=== PATIENT | female | born 1985 | race Caucasian/White ===

== ENCOUNTER 2018-08-03 17:56 | Emergency (ER) | payer OTHER ==
[2018-08-03] MEDS ORDERED: EPINEPHRINE 1 MG/ML 1 ML VIAL IM ONE (18:04)
[2018-08-03] MEDS ORDERED: diPHENhydraMINE PO* 50 MG PO ONE (18:05)
[2018-08-03] MEDS ORDERED: predniSONE TAB* 20 MG PO ONE (18:05)
[2018-08-03] MEDS ORDERED: diPHENhydraMINE PO* 25 MG ONE (18:10)
[2018-08-03] MEDS ORDERED: diPHENhydraMINE PO* 50 MG ONE (18:12)
--- NOTE | 2018-08-03 18:12 | UC ---
Allergic Reaction HPI - HPI Summary HPI Summary: Was eating a seafood bowl and had the sudden onset of feeling hot and facial swelling. - History of Current Complaint Stated Complaint: ALLERGIC REACTION Time Seen by Provider: 08/03/18 17:59 Hx Obtained From: Patient ?: No Onset/Duration: Sudden Onset, Lasting Minutes - 30 Severity Initially: Mild Severity Currently: Moderate Character: Swelling Aggravating Factor(s): Nothing Alleviating Factor(s): Nothing Associated Signs And Symptoms: Positive: Diaphoresis, Lightheadedness, Rash - redness in the face and upper chest.. Negative: Chest Pain, Difficulty Breathing, Hoarseness, Throat Tightening - Related Hx Possible Reaction To: Food - seafood - Allergies/Home Medications Allergies/Adverse Reactions: Allergies Allergy/AdvReac Type Severity Reaction Status Date / Time sulfamethoxazole Allergy Unknown Unknown Verified 08/03/18 18:00 [From Bactrim] Reaction Details trimethoprim [From Bactrim] Allergy Unknown Unknown Verified 08/03/18 18:00 Reaction Details Home Medications: Home Medications Albuterol HFA INHALER* [Ventolin HFA Inhaler*] 2 puff INH Q4H PRN 08/03/18 [ History Confirmed 08/03/18] Levothyroxine Sodium [Tirosint] 175 mcg PO DAILY 08/03/18 [History Confirmed ] PMH/Surg Hx/FS Hx/Imm Hx Endocrine History: Hypothyroidism - Family History Known Family History: Positive: Hypertension - Social History Occupation: Employed Part-time Lives: With Family Review of Systems All Other Systems Reviewed And Are Negative: Yes Skin: Positive: Rash - redness of the face/ chest Is Patient Immunocompromised?: No Physical Exam Triage Information Reviewed: Yes Appearance: No Pain Distress, Well-Nourished, Ill-Appearing - anxious Vital Signs Reviewed: Yes Eyes: Positive: Conjunctiva Clear ENT: Positive: Pharynx normal, TMs normal Neck exam: Normal Respiratory: Positive: Lungs clear. Negative: Wheezing Cardiovascular Exam: Normal Musculoskeletal Exam: Normal Neurological Exam: Normal Psychological Exam: Normal Skin: Positive: Rashes - diffuse redness of the face/ neck and chest Re-Evaluation - Re-Evaluation First Eval Re-Evaluation Time: 18:55 Change: Improved Allergic Reaction Course/Dx - Differential Dx/Diagnosis Differential Diagnosis/HQI/PQRI: Airway Obstruction, Anaphylaxis, Erythema Multiforme Provider Diagnosis: Angioedema due to seafood allergy Discharge - Sign-Out/Discharge Documenting (check all that apply): Patient Departure All imaging exams completed and their final reports reviewed: No Studies - Discharge Plan Condition: Stable Disposition: HOME Prescriptions: EPINEPHrine [Epipen] 0.3 mg IJ ONCE #1 auto.injct Patient Education Materials: Food Allergy (ED), Epinephrine (By injection) Additional Instructions: Continue benedryl as needed. Consider referral to an consulting analyst to have allergy testing. Get all the ingredients from the seafood bowl. - Billing Disposition and Condition Condition: STABLE Disposition: Home
[2018-08-03 18:34] VITALS: BP 146/89
== END 2018-08-03 19:10 | disposition home or self-care (01) ==
LOC: UCCORT 17:56
DX: T78.3XXA Angioneurotic edema, initial encounter (principal); T78.1XXA Other adverse food reactions, not elsewhere classified, initial encounter; X58.XXXA Exposure to other specified factors, initial encounter; E03.9 Hypothyroidism, unspecified
CPT/HCPCS: 96372; 99202; A9270-GY; G0463; J7512

== ENCOUNTER 2018-08-11 20:36 | Emergency (ER) | payer OTHER ==
[2018-08-11 20:55] VITALS: BP 138/98
--- NOTE | 2018-08-11 21:24 | UC ---
Skin Complaint HPI - HPI Summary HPI Summary: 32 y/o female presents to the urgent care c/o buck in both of her temporal areas w/ mild swelling and she thinks it is increasing in size s/p anaphylactic reaction after eating sushi about 1 week ago on 08/03/2018 at the [facility]. She was seen at the [facility] care at [place] and was Dx w/ Angioedema allergic reaction and Rx Epi pen. she has an appt w/ Siphoner in a few day for further management. She she is concerned about a parasite since she has been constipated after she ate sushi. She feels like a butterfly sensation in her abdomen at times. She has also demarcated the rash in her temporal areas and has taken picture to show that it has increased in size. She states she took some organic teas to stimulate BM and she had a very hard,but small BM yesterday. She has not been eating or drinking fluids well. Abdominal pain is achy, diffuse, 2/10 and intermittent, sometimes associated w/ gas. She request an stool culture. Pt deneis fever, SOB, cough, recent travel outside the country. However she lives in [place] and is visiting here for 2 more week. Denies ANDREWS, dizziness, facial swelling, sore throat, chest pain, N/V/D, urinary symptoms. LMP: she is w/ her period now. - History of Current Complaint Chief Complaint: UCSkin Time Seen by Provider: 08/11/18 21:23 Stated Complaint: FORIEGN OBJECT IN HEAD? Hx Obtained From: Patient Hx Last Menstrual Period: [id number] Onset/Duration: Gradual Onset, Lasting Weeks - 1 week, Still Present, Worse Since - today Skin Exposure Onset/Duration: Weeks Ago - 1 week ago Timing: Constant Onset Severity: Mild Current Severity: Moderate Pain Intensity: 2 Pain Scale Used: 0-10 Numeric Location: Discrete - B/l temporal area w/ a buck and mild swelling Character: Swelling - mild swelling around temporal artery Aggravating Factor(s): Touch Alleviating Factor(s): Nothing Associated Signs & Symptoms: Positive: Rash - increase buck around temporal arteries w/ mild swelling. Negative: Nausea, Vomiting, Numbness, Tenderness, Red Streaks Related History: Other: - anaphylactic reaction about 1 week ago s/p eating sushi - Allergy/Home Medications Allergies/Adverse Reactions: Allergies Allergy/AdvReac Type Severity Reaction Status Date / Time sulfamethoxazole Allergy Unknown Unknown Verified 08/11/18 20:55 [From Bactrim] Reaction Details trimethoprim [From Bactrim] Allergy Unknown Unknown Verified 08/11/18 20:55 Reaction Details Home Medications: Home Medications Levothyroxine Sodium [Tirosint] 200 mcg PO DAILY 08/11/18 [History Confirmed ] PMH/Surg Hx/FS Hx/Imm Hx Previously Healthy: Yes Endocrine History: Hypothyroidism Respiratory History: Asthma - Surgical History Surgical History: Yes Surgery Procedure, Year, and Place: vein stripping - Family History Known Family History: Positive: Hypertension - Social History Occupation: Employed Full-time Lives: With Family Alcohol Use: Daily Substance Use Type: None Smoking Status (MU): Never Smoked Tobacco Review of Systems All Other Systems Reviewed And Are Negative: Yes Constitutional: Positive: Negative Skin: Positive: Rash - more pronounced temproal arteries w/ mild pain and swelling Eyes: Positive: Negative ENT: Positive: Negative Respiratory: Positive: Negative Cardiovascular: Positive: Negative Gastrointestinal: Positive: Other - constipation Genitourinary: Positive: Negative Motor: Positive: Negative Neurovascular: Positive: Negative Musculoskeletal: Positive: Negative Neurological: Positive: Headache - mild Psychological: Positive: Negative Is Patient Immunocompromised?: No Physical Exam - Summary Physical Exam Summary: Vital Signs Reviewed: Yes General:Patient is a well developed and nourished female who is sitting comfortable in the examining table. Patient is not in any acute respiratory distress. Head:normocephalic and atraumatic, B/L temporal arteries w/ mild tenderness on palpation and Pt has demarcated them w/ a black eye pencil and appear more pronounced. Eyes: Positive: Conjunctiva Clear - PERRLA, EOMI, fundi grossly normal ENT: Positive: Normal ENT inspection, Hearing grossly normal, Pharynx normal, TMs normal Neck: Positive: Supple, Nontender, No Lymphadenopathy Respiratory: Positive: Chest non-tender, Lungs clear, Normal breath sounds, No respiratory distress Cardiovascular: Positive: RRR,S1 and S2 present, No Murmur, Pulses Normal, Brisk Capillary Refill Abdomen Description: Positive: Nontender, Other: - Abd: Flat with no distention. No surface trauma, scars, incisions. hyperactive bowel sounds present in all four quadrants. No tenderness, guarding, rigidity to palpation. No masses palpated, no pulsation in epigastric area. No organomegaly. Negative Minong signs. No periumbilical tenderness. No rebound in the lower quadrants. NT over McBurneys point. Good femoral pulses bilaterally. No hernia noted. No CVAT bilaterally Musculoskeletal: Positive: Strength Intact, ROM Intact, No Edema,FROM in all major joints, no edema, no cyanosis or clubbing. Neuro: Alert and oriented x 3. No acute neurological deficits. Speech is normal. Psychological: WNL Skin: Dry and warm Triage Information Reviewed: Yes Vital Signs: Initial Vital Signs Temp 98.6 F 08/11/18 20:48 Pulse 94 08/11/18 20:48 Resp 16 08/11/18 20:48 BP 138/98 08/11/18 20:48 Pulse Ox 97 08/11/18 20:48 Course/Dx - Course Course Of Treatment: 32 y/o female presents to the urgent care c/o buck in both of her temporal areas w/ mild swelling and she thinks it is increasing in size s/p anaphylactic reaction after eating sushi about 1 week ago on 08/03/2018 at the [facility]. She was seen at the [facility] care at [place] and was Dx w/ Angioedema allergic reaction and Rx Epi pen. she has an appt w/ Siphoner in a few day for further management. She she is concerned about a parasite since she has been constipated after she ate sushi. She feels like a butterfly sensation in her abdomen at times. She has also demarcated the rash in her temporal areas and has taken picture to show that it has increased in size. She states she took some organic teas to stimulate BM and she had a very hard,but small BM yesterday. She has not been eating or drinking fluids well. Abdominal pain is achy, diffuse, 2/10 and intermittent, sometimes associated w/ gas. She request an stool culture. Pt deneis fever, SOB, cough, recent travel outside the country. However she lives in [place] and is visiting here for 2 more week. Denies ANDREWS, dizziness, facial swelling, sore throat, chest pain, N/V/D, urinary symptoms. LMP: she is w/ her period now. Hx obtained. Pt is hemodynamically stable, Vital : WNL. PE:WNL, the rash in the temporal it is her temporal arteries w/ mild swelling which has demarcated w/ a black facial pen which makes them more pronounced. However Pt is young and doesn't c/o of joint pain to thinks it is temporal arterities. Pt is anxious and request testing. Abdomen is WNL. Abdominal X-ray ordered to r/o constipation, Impression: No obstruction or significant retained stool observed. Pt advised final radiology report will be done tomorrow and she will be notified of any abnormality. CBC, CMP, ESR and CRP ordered and sent to lab. Pt will be notified of any abnormal result for further management w/ her PCP in [place]. Pt advised if she would have a parasite she will probably be w/ diarrhea instead of constipation. However Pt insisted on stool culture. pt advised to Take Miralax PO as directed below to regulate BM, increase fluid intake, increase fiber in diet and collect stool. Order slip given for OVa/parasites and stool culture. Pt counseled probably these weeks symptoms are a consequence of her allergic reaction. Pt's BP is elevated today advised to decrease salt in diet, monitor BP and f/u with PCP for further management. d/C instructions explained. Pt understood and agreed w/ plan of care and left clinic hemodynamically stable. - Differential Diagnoses - Skin Complaint Differential Diagnoses: Abscess, Cellulitis, Contact Dermatitis, Local Allergic Reaction, Urticaria, Other - temporal arteritis, constipation. - Diagnoses Provider Diagnosis: Constipation, Rash and nonspecific skin eruption, Temporal pain, Elevated BP without diagnosis of hypertension Discharge - Sign-Out/Discharge Documenting (check all that apply): Patient Departure - d/c home All imaging exams completed and their final reports reviewed: No - Discharge Plan Condition: Stable Disposition: HOME Prescriptions: Polyethylene Glycol 3350* [Miralax*] 17 gm PO DAILY #1 bottle Patient Education Materials: Constipation (ED), High Fiber Diet (ED) Referrals: [facility] [place] PHYSICIAN REFERRAL [Outside] - 3 Days Additional Instructions: 1- Please take Miralax PO as directed to alleviate symptoms and regulate your BM , Increase hydration and limit dietary ingestion of known gas-producing foods such as cabbage, onions, broccoli, brussel sprouts, wheat, and potatoes can help reduce symptoms. Also avoid drinking carbonated beverages, and gulping food or liquids. Eat a lot of fiber in your diet 2- Blood work sent to lab to r/o any abnormality since you are concern about your temporal area swelling. You will be notifeid of any abnormality 3- Please collect stool sample and bring it back w/ order slip for stool culture and Ova and parasite 4 - If symptoms worsen and you develop severe abdominal pain, N/V. please go immediately to the ER or your PCP for further evaluation and treatment. 5- Final radiology report swill be done tomorrow, you will be notified of any abnormality for further management 6-Your BP is elevated today. please decrease salt in your diet, monitor BP and if it continues to be elevated please f/u with your PCP for further management. - Billing Disposition and Condition Condition: STABLE Disposition: Home - Attestation Statements Provider Attestation: Per institutional requirements, I have reviewed the chart, however, I was not consulted specifically or made aware of this patient by the midlevel provider. I did not personally evaluate, interact with , or disposition this patient.
[2018-08-12 11:02] LABS: ABS Eosinophils 0.1 10^3/ul (0-0.6); ABS Lymphocytes 1.6 10^3/ul (1.0-4.8); ABS Monocytes 0.5 10^3/ul (0-0.8); ABS Neutrophils 2.1 10^3/ul (1.5-7.7); Hematocrit 46 % (35-47); Hemoglobin 15.8 g/dL (12.0-16.0); Lymphocyte % 35.9 %; Mean Corpuscular HGB Conc 34 g/dL (31-36); Mean Corpuscular Hemoglobin 33 pg (27-31); Mean Corpuscular Volume 96 fL (80-97); Mean Platelet Volume 9.1 fL (7.4-10.4); Nucleated Red Blood Cells % 0.1; Platelet Count 264 10^3/uL (150-450); Red Blood Count 4.77 10^6 /uL (3.70-4.87); Red Cell Distribution Width 13 % (10-15); White Blood Count 4.4 10^3/uL (3.5-10.8)
[2018-08-12 11:07] LABS: Albumin 4.4 g/dL (3.2-5.2); Calcium 9.3 mg/dL (8.6-10.3); Total Bilirubin 0.5 mg/dL (0.2-1.0)
[2018-08-12 11:13] LABS: Albumin/Globulin Ratio 1.5 (1-3); BUN/Creatinine Ratio 5.1 (8-20); C Reactive Protein 2.53 mg/L (<8.01); EGFR African American 101.4 (>60); EGFR Non-African American 83.8 (>60); Total Protein 7.4 g/dL (6.4-8.9)
--- NOTE | 2018-08-12 12:41 | UC ---
- Progress Note Progress Note: xray report abd: IMPRESSION: NO EVIDENCE FOR OBSTRUCTION. Course/Dx - Diagnoses Provider Diagnoses: Constipation, Rash and nonspecific skin eruption, Temporal pain, Elevated BP without diagnosis of hypertension Discharge - Sign-Out/Discharge Documenting (check all that apply): Patient Departure All imaging exams completed and their final reports reviewed: Yes - Discharge Plan Condition: Stable Disposition: HOME Prescriptions: Polyethylene Glycol 3350* [Miralax*] 17 gm PO DAILY #1 bottle Patient Education Materials: Constipation (ED), High Fiber Diet (ED) Referrals: [facility] [place] [facility] REFERRAL [Outside] - 3 Days Additional Instructions: 1- Please take Miralax PO as directed to alleviate symptoms and regulate your BM , Increase hydration and limit dietary ingestion of known gas-producing foods such as cabbage, onions, broccoli, brussel sprouts, wheat, and potatoes can help reduce symptoms. Also avoid drinking carbonated beverages, and gulping food or liquids. Eat a lot of fiber in your diet 2- Blood work sent to lab to r/o any abnormality since you are concern about your temporal area swelling. You will be notifeid of any abnormality 3- Please collect stool sample and bring it back w/ order slip for stool culture and Ova and parasite 4 - If symptoms worsen and you develop severe abdominal pain, N/V. please go immediately to the ER or your PCP for further evaluation and treatment. 5- Final radiology report swill be done tomorrow, you will be notified of any abnormality for further management 6-Your BP is elevated today. please decrease salt in your diet, monitor BP and if it continues to be elevated please f/u with your PCP for further management. - Billing Disposition and Condition Condition: STABLE Disposition: Home
[2018-08-12 13:14] LABS: Erythrocyte Sed Rate 1 mm/Hr (0-19)
== END 2018-08-11 22:50 | disposition home or self-care (01) ==
LOC: UCEAST 20:36
DX: K59.00 Constipation, unspecified (principal); R21 Rash and other nonspecific skin eruption; R51 Headache; R03.0 Elevated blood-pressure reading, without diagnosis of hypertension; E03.9 Hypothyroidism, unspecified
CPT/HCPCS: 36415; 74019; 80053; 85025; 85652; 86140; 99212; G0463

== ENCOUNTER 2018-08-28 05:01 | Emergency (ER) | payer OTHER ==
[2018-08-28] MEDS ORDERED: Al Hydrox/Mg Hydrox/Simet LIQ* 30 ML UDC PO ONE (05:22)
--- NOTE | 2018-08-28 05:27 | ED ---
HPI Chest Pain - HPI Summary HPI Summary: Pt is a 32 y/o F presenting to the ED with a chief complaint of a burning sensation in her chest. She states it came on around 0200, is located in her mid -sternal area, and has somewhat spread to the sides over time. She reports fatigue, dehydration, and dizziness. She denies SOB, LE pain, or LE edema. - History of Current Complaint Chief Complaint: EDChestPainROMI Time Seen by Provider: 08/28/18 05:08 Hx Obtained From: Patient Hx Last Menstrual Period: [id number] Onset/Duration: Started Hours Ago, Still Present Timing: Constant, Lasting Hours Initial Severity: Moderate Current Severity: Moderate Chest Pain Location: Mid Sternal Chest Pain Radiates: No Character: Burning Aggravating Factor(s): Nothing Alleviating Factor(s): Nothing Associated Signs and Symptoms: Positive: Chest Pain, Dizziness, Other: - fatigue , dehydration. Negative: Shortness of Breath, Edema - Allergy/Home Medications Allergies/Adverse Reactions: Allergies Allergy/AdvReac Type Severity Reaction Status Date / Time sulfamethoxazole Allergy Unknown Unknown Verified 08/11/18 20:55 [From Bactrim] Reaction Details trimethoprim [From Bactrim] Allergy Unknown Unknown Verified 08/11/18 20:55 Reaction Details PMH/Surg Hx/FS Hx/Imm Hx Previously Healthy: Yes Endocrine/Hematology History: Reports: Hx Thyroid Disease Respiratory History: Reports: Hx Asthma - allegy induced - Surgical History Surgery Procedure, Year, and Place: vein stripping - Immunization History Date of Tetanus Vaccine: unk Date of Influenza Vaccine: unk Infectious Disease History: Reports: 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 Denies: Traveled Outside the [place] in Last 30 Days - Family History Known Family History: Positive: Hypertension - Social History Alcohol Use: Daily Hx Substance Use: No Substance Use Type: Reports: None Hx Tobacco Use: No Smoking Status (MU): Never Smoked Tobacco Review of Systems Positive: Fatigue, Other - dehydration Negative: Shortness Of Breath Negative: Myalgia, Edema Neurological: Other - dizziness All Other Systems Reviewed And Are Negative: Yes Physical Exam - Summary Physical Exam Summary: Appearance: Well-appearing, Well-nourished, lying in bed comfortably Skin: Warm, dry, no obvious rash Eyes: sclera anicteric, no conjunctival pallor ENT: mucous membranes moist, pharynx appears normal Neck: Supple, nontender Respiratory: Clear to auscultation, no signs of respiratory distress Cardiovascular: Normal S1, S2. No murmurs. Normal distal pulses in tibial and radial bilaterally. Abdomen: Soft, nontender, normal active bowel sounds present Musculoskeletal: Normal, Strength/ROM Intact Neurological: A&Ox3, awake and alert, mentation is normal, speech is fluent and appropriate Psychiatric: affect is normal, does not appear anxious or depressed Triage Information Reviewed: Yes Vital Signs Reviewed: Yes Diagnostics - Laboratory Result Diagrams: 08/28/18 05:28 08/28/18 05:28 Lab Statement: Any lab studies that have been ordered have been reviewed, and results considered in the medical decision making process. - EKG 0504 Cardiac Rate: Tachycardia - 103bpm EKG Rhythm: Sinus Tachycardia ST Segment: Normal Ectopy: None Summary of EKG Findings: EKG at 0504 shows sinus tachycardia at 103 BPM, P waves , QRS complex, and T waves are within normal limits, T waves and intervals are normal, no ischemic changes. This is a normal EKG. Chest Pain Course/Dx - Course Course Of Treatment: Pt is a 32 y/o F presenting to the ED with a chief complaint of a burning sensation in her chest. She states it came on around 0200 , is located in her mid-sternal area, and has somewhat spread to the sides over time. She reports fatigue, dehydration, and dizziness. She denies SOB, LE pain, or LE edema. Pt's physical exam is nml. EKG at 0504 shows sinus tachycardia at 103 BPM, P waves, QRS complex, and T waves are within normal limits, T waves and intervals are normal, no ischemic changes. This is a normal EKG. Pts hematology shows RBC of 4.94 and MCH of 32. Pts Potassium is 3.4, BUN is 4, BUN /Creatinine ratio is 5.0, and troponin I is 0.00. Pt will be signed out to Dr. Mendez at 0700 on 08/28/18 pending second troponin result. - Diagnoses Provider Diagnoses: Esophageal spasm Discharge - Sign-Out/Discharge Documenting (check all that apply): Sign-Out Patient Signing out patient TO: Bj Mendez Patient Received Moderate/Deep Sedation with Procedure: No - Discharge Plan Condition: Good Disposition: HOME Patient Education Materials: Esophageal Spasm (ED) Referrals: [facility] [Outside] Additional Instructions: I would recommend taking an antacid medicine like pepcid or zantac for the next 2 weeks to let your esophagus quiet down and heal. If you are feeling better after that you can stop the medicine. The tests we ran tonantelmo did not show any sign of a heart problem as the cause of your symptoms. - Billing Disposition and Condition Condition: GOOD Disposition: Home - Attestation Statements Document Initiated by Scribe: Yes Documenting Scribe: Kanwal Webb Provider For Whom William is Documenting (Include Credential): Juan R Hutchins MD. Scribe Attestation: I, Kanwal Webb, scribed for Juan R Hutchins MD. on 08/30/18 at 0322. Scribe Documentation Reviewed: Yes Provider Attestation: The documentation as recorded by the scribe, Kanwal Webb accurately reflects the service I personally performed and the decisions made by me, Juan R Hutchins MD. Status of Scribe Document: Viewed
[2018-08-28 05:38] LABS: ABS Basophils 0.1 10^3/ul (0-0.2); ABS Eosinophils 0.2 10^3/ul (0-0.6); ABS Lymphocytes 1.6 10^3/ul (1.0-4.8); ABS Monocytes 0.6 10^3/ul (0-0.8); ABS Neutrophils 2.4 10^3/ul (1.5-7.7); Eosinophil % 3.3 %; Hematocrit 47 % (35-47); Hemoglobin 15.9 g/dL (12.0-16.0); Lymphocyte % 33.1 %; Mean Corpuscular HGB Conc 34 g/dL (31-36); Mean Corpuscular Hemoglobin 32 pg (27-31); Mean Corpuscular Volume 94 fL (80-97); Mean Platelet Volume 8.8 fL (7.4-10.4); Nucleated Red Blood Cells % 0.2; Platelet Count 260 10^3/uL (150-450); Red Blood Count 4.94 10^6 /uL (3.70-4.87); Red Cell Distribution Width 13 % (10-15); White Blood Count 4.8 10^3/uL (3.5-10.8)
[2018-08-28 05:44] LABS: INR 0.94 (0.82-1.09)
[2018-08-28 05:56] LABS: Albumin 4.4 g/dL (3.2-5.2); Albumin/Globulin Ratio 1.4 (1-3); Calcium 9.2 mg/dL (8.6-10.3); EGFR Non-African American 82.6 (>60); Globulin 3.1 g/dL (2-4); Potassium 3.4 mmol/L (3.5-5.0); Total Bilirubin 0.6 mg/dL (0.2-1.0); Total Protein 7.5 g/dL (6.4-8.9)
--- NOTE | 2018-08-28 07:08 | ED ---
Progress - Progress Note Progress Note: This patient was signed out from Dr. Hutchins to Dr. Mendez at shift change on 08/28 at 0700, pending disposition, awaiting second troponin results. The second troponin is 0.0. The patients condition is stable and will be discharged to home with Dx of esophageal spasm. Re-Evaluation - Re-Evaluation First Eval Re-Evaluation Time: 08:21 Comment: Discussed troponin results and plan of care with pt. Pt is agreable to discharge. Course/Dx - Course Course Of Treatment: The pt was signed out by Dr Hutchins to check the second troponin, second troponin is 0.0. pt is asymptomatic and hemodynamically stable , and discharged home. - Diagnoses Provider Diagnoses: Esophageal spasm Discharge - Sign-Out/Discharge Documenting (check all that apply): Patient Departure - Discharge Patient Received Moderate/Deep Sedation with Procedure: No - Discharge Plan Condition: Good Disposition: HOME Patient Education Materials: Esophageal Spasm (ED) Referrals: [facility] [Outside] Additional Instructions: I would recommend taking an antacid medicine like pepcid or zantac for the next 2 weeks to let your esophagus quiet down and heal. If you are feeling better after that you can stop the medicine. The tests we ran tonight did not show any sign of a heart problem as the cause of your symptoms. - Billing Disposition and Condition Condition: GOOD Disposition: Home - Attestation Statements Document Initiated by William: Yes Documenting Scribe: Savannah Landaverde Provider For Whom William is Documenting (Include Credential): Dr. Bj Mendez MD Scribe Attestation: ISavannah scribed for Dr. Bj Mendez MD on 08/29/18 at 0825. Scribe Documentation Reviewed: Yes Provider Attestation: The documentation as recorded by the Savannah art accurately reflects the service I personally performed and the decisions made by me, Dr. Bj Mendez MD Status of Scriballison Document: Viewed
[2018-08-28 08:36] VITALS: BP 143/89
== END 2018-08-28 08:35 | disposition home or self-care (01) ==
LOC: ED 05:01
DX: K22.4 Dyskinesia of esophagus (principal); Z79.899 Other long term (current) drug therapy; Z88.2 Allergy status to sulfonamides; R07.9 Chest pain, unspecified; R53.83 Other fatigue; R00.0 Tachycardia, unspecified
CPT/HCPCS: 36415; 80053; 84484; 85025; 85610; 93005; 99283; A9270-GY